=== PATIENT | female | born 1960 | race Caucasian/White ===

== ENCOUNTER → 2017-09-12 | Outpatient (CLI) | payer SELFPAY ==
[2017-09-12 11:15] LABS: HEMATOCRIT 40.9 % (37.0-47.0); HEMOGLOBIN 13.9 g/dl (12.5-16.0); MEAN CELL VOLUME 89 fl (80.0-100.0); MEAN CORPUSCULAR HEMOGLOBIN 30 pg (27.0-31.0); MEAN CORPUSCULAR HGB CONC 34 g/dl (33.0-37.0); MEAN PLATELET VOLUME 9.7 fl (7.4-10.4); PLATELET COUNT 336 K/mm3 (130-400); RED BLOOD COUNT 4.59 M/mm3 (4.10-5.30); REDCELL DISTRIBUTION WIDTH-CV 12.8 % (11.5-14.5)
[2017-09-12 11:23] LABS: ALBUMIN 4.2 gm/dL (3.5-5.0); BILIRUBIN,TOTAL 0.4 mg/dL (0.0-1.0); CALCIUM 9.8 mg/dL (8.4-10.2); CREATININE, serum 0.85 mg/dL (0.52-1.25); POTASSIUM 4.7 mmol/L (3.4-5.0); TOTAL PROTEIN 8.3 gm/dL (6.4-8.2)
[2017-09-12 11:46] LABS: ERYTHROCYTE SEDIMENTATION RATE 6 mm/hr (0-30)
== END ==
LOC: COL.RAD 10:11
DX: M79.641 Pain in right hand (principal); R22.31 Localized swelling, mass and lump, right upper limb

== ENCOUNTER → 2017-10-09 | Outpatient (CLI) | payer OTHER | LOC: MC.RAD 10:55 | DX: N63.10 Unspecified lump in the right breast, unspecified quadrant (principal); Z80.3 Family history of malignant neoplasm of breast; Z98.890 Other specified postprocedural states ==

== ENCOUNTER 2017-12-09 07:20 | Day surgery (SDC) | payer OTHER ==
[~2017-12-09] VITALS: Ht 158.8 cm; Wt 84.2 kg
[2017-12-09] MEDS ORDERED: HCTZ 25MG TAB25 MG PO (07:48)
[2017-12-09] MEDS ORDERED: PRILOTC PO (07:49)
[2017-12-09] MEDS ORDERED: VITAMINC1000TA PO (07:49)
[2017-12-09] MEDS ORDERED: MAGNESIUM250 M1 PO (07:50)
[2017-12-09] MEDS ORDERED: NATURAL POTASS595 MG PO (07:50)
[2017-12-09] MEDS ORDERED: VITAMIN B122500 MCG SL (07:51)
[2017-12-09] MEDS ORDERED: CALCIUM 600MG+D1 TAB PO (07:52)
[2017-12-09] MEDS ORDERED: VITAMIN D 400400 IU PO (07:52)
[2017-12-09] MEDS ORDERED: MULTIPLE VITAMI1 TA5 PO (07:52)
[2017-12-09] MEDS ORDERED: METAMUCIL MUL0.52 GM PO (07:53)
[2017-12-09] MEDS ORDERED: TYLENOL 500MG500 MG PO (07:54)
[2017-12-09 08:03] VITALS: BP 154/68; PULSE 73; TEMP 98.2
[2017-12-09 09:25] VITALS: BP 129/77; PULSE 72; TEMP 97.6
[2017-12-09 09:45] VITALS: BP 124/58; PULSE 62
[2017-12-09 10:00] VITALS: BP 125/71; PULSE 59
== END 2017-12-09 10:13 | disposition home or self-care (01) ==
LOC: SDCO 07:20
DX: D12.2 Benign neoplasm of ascending colon (principal); D12.5 Benign neoplasm of sigmoid colon; K64.0 First degree hemorrhoids; K92.1 Melena; R19.7 Diarrhea, unspecified; K29.30 Chronic superficial gastritis without bleeding; K21.9 Gastro-esophageal reflux disease without esophagitis; K44.9 Diaphragmatic hernia without obstruction or gangrene; I10 Essential (primary) hypertension; M19.90 Unspecified osteoarthritis, unspecified site; E78.00 Pure hypercholesterolemia, unspecified; Z90.710 Acquired absence of both cervix and uterus; Z88.1 Allergy status to other antibiotic agents; Z80.0 Family history of malignant neoplasm of digestive organs
CPT/HCPCS: J2250; J2405; J3010; J7030

== ENCOUNTER → 2018-01-06 | Outpatient (CLI) | payer OTHER ==
[~2018-01-06] MED LIST: CALCIUM 600MG+D1 TAB PO; HCTZ 25MG TAB25 MG PO; MAGNESIUM250 M1 PO; METAMUCIL MUL0.52 GM PO; MULTIPLE VITAMI1 TA5 PO; NATURAL POTASS595 MG PO; PRILOTC PO; TYLENOL 500MG500 MG PO; VITAMIN B122500 MCG SL; VITAMIN D 400400 IU PO; VITAMINC1000TA PO
[2018-01-06 11:32] LABS: ALBUMIN 4.4 gm/dL (3.5-5.0); BILIRUBIN,TOTAL 0.3 mg/dL (0.0-1.0); CALCIUM 9.7 mg/dL (8.4-10.2); CREATININE, serum 0.62 mg/dL (0.52-1.25); POTASSIUM 4.1 mmol/L (3.4-5.0); TOTAL PROTEIN 7.7 gm/dL (6.4-8.2)
== END ==
LOC: ZCOL.LAB 11:08
DX: I10 Essential (primary) hypertension (principal); M79.7 Fibromyalgia; M19.90 Unspecified osteoarthritis, unspecified site

== ENCOUNTER → 2018-01-27 | Outpatient (CLI) | payer SELFPAY ==
[2018-01-27 13:56] LABS: CALCIUM 9.9 mg/dL (8.4-10.2); CREATININE, serum 0.67 mg/dL (0.52-1.25); POTASSIUM 4.2 mmol/L (3.4-5.0)
== END ==
LOC: ZLAB.FHCC 13:20
DX: I10 Essential (primary) hypertension (principal); M79.7 Fibromyalgia